=== PATIENT | female | born 1955 | race Caucasian/White ===

== ENCOUNTER 2017-09-29 06:49 | Emergency (ER) | payer MEDICARE ==
[2017-09-29] MEDS ORDERED: DICY10AM2 IM (07:01)
[2017-09-29] MEDS ORDERED: OMEP-125 PO (07:01)
--- NOTE | 2017-09-29 07:10 | ER Report ---
History and Physical Time Seen By : 07:10 Hx. of Stated Complaint: gall bladder taken out two weeks ago. traveling home to [place], stopped at rest stop in severe abd pain. had bloody diarrhea. HPI/ROS CHIEF COMPLAINT: abdominal pain, nausea, vomiting, diarrhea HISTORY OF PRESENT ILLNESS: This is a 62 year old female. She has abdominal pain that started in the last 24 hours. She also had sudden onset of diarrhea this morning, this was associated with some bright red blood as well this morning. She is traveling home to [place]. 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 She had laparoscopic cholecystectomy 2 weeks ago. Had been doing okay with that, but did lift some heavy objects that seem to have been associated with the onset of her pain. The surgical scars have been healing well. She denies any problems with urination. She does have nausea and vomiting. She has no fevers or chills. History of stomach ulcers in the past. Was on antibiotics after surgery and a few days afterward. She has irritable bowel syndrome and usually used Bentyl for this. Allergies: Coded Allergies: Sulfa (Sulfonamide Antibiotics) (Verified Allergy, Severe, 09/29/17) itching acetaminophen (Verified Allergy, Severe, 09/29/17) itching oxycodone (Verified Allergy, Severe, 09/29/17) itching prochlorperazine (Verified Allergy, Severe, 09/29/17) itching ranitidine (Verified Allergy, Severe, 09/29/17) itching Home Meds Active Scripts Dicyclomine Hcl (DICYCLOMINE HCL) 10 Mg Capsule, 10 MG PO QID Y for NAUSEA/ VOMITING, #120 CAPSULE 0 Refills Prov:EAGLE PINEDO MD 09/29/17 Metoclopramide Hcl (REGLAN) 10 Mg Tablet, 10 MG PO TID Y for NAUSEA/VOMITING, # 30 TAB 0 Refills Prov:EAGLE PINEDO MD 09/29/17 Metronidazole (METRONIDAZOLE) 500 Mg Tablet, 500 MG PO TID for 10 Days, #30 TAB 0 Refills Prov:EAGLE PINEDO MD 09/29/17 Reported Medications Omeprazole (OMEPRAZOLE) 20 Mg Capsule.dr, 1 CAP PO BID, CAP 09/29/17 Dicyclomine Hcl (BENTYL) 10 Mg/1 Ml Ampul, 10 MG IM 09/29/17 Reviewed Nurses Notes: Yes Hx Substance Use Disorder: No Hx Alcohol Use: No Constitutional Vital Sign - Last 24 Hours 09/29/17 09/29/17 09/29/17 09/29/17 06:56 06:56 07:04 07:10 Temp 98.4 Pulse 91 83 Resp 20 B/P (MAP) 140/89 (106) 140/89 135/84 (101) Pulse Ox 96 97 O2 Delivery Room Air 09/29/17 09/29/17 09/29/17 09/29/17 07:15 07:19 07:24 07:30 Pulse 75 78 B/P (MAP) 105/81 (89) 116/82 (93) Pulse Ox 98 98 09/29/17 09/29/17 09/29/17 09/29/17 07:39 07:44 07:45 07:59 Pulse 75 72 79 B/P (MAP) 127/80 (96) Pulse Ox 97 98 93 09/29/17 09/29/17 09/29/17 09/29/17 08:00 08:15 08:20 08:30 Pulse 75 B/P (MAP) 121/77 (92) 131/80 (97) 99/67 (78) Pulse Ox 96 09/29/17 09/29/17 09/29/17 09/29/17 08:35 08:45 08:50 08:55 Pulse 79 77 ??? B/P (MAP) 104/68 (80) Pulse Ox 88 92 94 09/29/17 09/29/17 09/29/17 09/29/17 09:00 09:10 09:15 09:25 Pulse 72 75 B/P (MAP) 118/71 (87) 115/72 (86) Pulse Ox 95 92 09/29/17 09/29/17 09/29/17 09/29/17 09:30 09:40 09:45 09:55 Pulse 81 B/P (MAP) 114/72 (86) 118/68 (85) Pulse Ox 97 96 09/29/17 09/29/17 09/29/17 09/29/17 10:00 10:18 10:30 10:41 B/P (MAP) 123/97 (106) 129/67 (87) 121/66 (84) 114/68 (83) Intake and Output 09/29/17 09/29/17 09/30/17 14:59 22:59 06:59 Intake Total 1100 ml Balance 1100 ml Physical Exam General Appearance: The patient is alert. No acute distress. Eyes: Pupils are equal, round. Reactive to light. No pallor, injection or icterus. ENT: Mucous membranes are moist. Normal oral mucosa. Posterior oropharynx is normal. Neck: Supple and non tender. Respiratory: Lungs are clear to auscultation. Cardiovascular: Regular rate and rhythm. No murmurs, gallops or rubs. Normal capillary refill. Gastrointestinal: Abdomen is tender throughout, worse in the suprapubic area and in the right upper quadrant. Nondistended. No masses or organomegaly. Normal active bowel sounds. No costovertebral angle tenderness with percussion. Neurological: Alert and oriented x3. Skin: Warm and dry. No rashes. Surgical scars on the abdomen are well healed. Musculoskeletal: Extremities are nontender. No tenderness in palpation of the cervical, thoracic and lumbar spine. DIFFERENTIAL DIAGNOSIS: After history and physical exam, differential diagnosis was considered for abdominal pain including but not limited to post-operative complications from her cholecystitis, colitis, infectious, gastritis/ulcer disease and urinary tract infection. Medical Decision Making Data Points Result Diagram: 09/29/17 0716 09/29/17 0716 Laboratory Hematology Test 09/29/17 07:16 09/29/17 08:06 Red Blood Count 4.63 M/uL (4.17-5.56) Mean Corpuscular Volume 89.8 fL (80.0-96.0) Mean Corpuscular Hemoglobin 31.0 pg (26.0-33.0) Mean Corpuscular Hemoglobin Concent 34.5 g/dL (32.0-36.0) Red Cell Distribution Width 12.7 % (11.5-14.5) Mean Platelet Volume 9.1 fL (7.2-11.1) Neutrophils (%) (Auto) 62.0 % (39.4-72.5) Lymphocytes (%) (Auto) 28.8 % (17.6-49.6) Monocytes (%) (Auto) 8.2 % (4.1-12.4) Eosinophils (%) (Auto) 0.5 % (0.4-6.7) Basophils (%) (Auto) 0.5 % (0.3-1.4) Nucleated RBC Relative Count (auto) 0.0 /100WBC Neutrophils # (Auto) 5.7 K/uL (2.0-7.4) Lymphocytes # (Auto) 2.6 K/uL (1.3-3.6) Monocytes # (Auto) 0.7 K/uL (0.3-1.0) Eosinophils # (Auto) 0.0 K/uL (0.0-0.5) Basophils # (Auto) 0.0 K/uL (0.0-0.1) Nucleated RBC Absolute Count (auto) 0.00 K/uL Sodium Level 140 mmol/L (137-145) Potassium Level 3.5 mmol/L (3.5-5.0) Chloride Level 102 mmol/L (98-107) Carbon Dioxide Level 22 mmol/L (22-31) Blood Urea Nitrogen 19 mg/dl (7-18) Creatinine 0.70 mg/dl (0.52-1.04) Glomerular Filtration Rate Calc > 60.0 Random Glucose 103 mg/dl (75-110) Lactate 1.2 mmol/L (0.7-2.1) Calcium Level 10.2 mg/dl (8.4-10.2) Total Bilirubin 0.7 mg/dl (0.2-1.3) Aspartate Amino Transf (AST/SGOT) 30 U/L (0-35) Alanine Aminotransferase (ALT/SGPT) 37 U/L (0-56) Alkaline Phosphatase 93 U/L (0-126) Total Protein 7.8 gm/dl (6.3-8.2) Albumin 4.5 g/dl (3.5-5.0) Amylase Level 99 U/L (0-110) Lipase 212 U/L (23-300) Thyroid Stimulating Hormone (TSH) 7.65 uIU/ml (0.46-4.68) Urine Color Straw Urine Clarity Clear Urine pH 8.0 pH (4.8-9.5) Urine Specific [place] 1.009 Urine Protein Negative mg/dL (NEGATIVE) Urine Glucose (UA) Negative mg/dL (NEGATIVE) Urine Ketones Trace mg/dL (NEGATIVE) Urine Blood Negative (NEGATIVE) Urine Nitrite Negative (NEGATIVE) Urine Bilirubin Negative (NEGATIVE) Urine Urobilinogen Negative mg/dL (0.2-1.9) Urine Leukocyte Esterase Negative (NEGATIVE) Urine RBC None /HPF (0-2/HPF) Urine WBC 1 /HPF (0-5/HPF) Urine Squamous Epithelial Cells Moderate /LPF (</=FEW) Urine Bacteria Negative /HPF (NONE-FEW) Urine Mucus None /HPF (NONE-FEW) Chemistry Test 09/29/17 07:16 09/29/17 08:06 White Blood Count 9.1 k/uL (4.5-11.0) Red Blood Count 4.63 M/uL (4.17-5.56) Hemoglobin 14.4 g/dL (12.0-16.0) Hematocrit 41.6 % (34.0-47.0) Mean Corpuscular Volume 89.8 fL (80.0-96.0) Mean Corpuscular Hemoglobin 31.0 pg (26.0-33.0) Mean Corpuscular Hemoglobin Concent 34.5 g/dL (32.0-36.0) Red Cell Distribution Width 12.7 % (11.5-14.5) Platelet Count 224 K/uL (150-450) Mean Platelet Volume 9.1 fL (7.2-11.1) Neutrophils (%) (Auto) 62.0 % (39.4-72.5) Lymphocytes (%) (Auto) 28.8 % (17.6-49.6) Monocytes (%) (Auto) 8.2 % (4.1-12.4) Eosinophils (%) (Auto) 0.5 % (0.4-6.7) Basophils (%) (Auto) 0.5 % (0.3-1.4) Nucleated RBC Relative Count (auto) 0.0 /100WBC Neutrophils # (Auto) 5.7 K/uL (2.0-7.4) Lymphocytes # (Auto) 2.6 K/uL (1.3-3.6) Monocytes # (Auto) 0.7 K/uL (0.3-1.0) Eosinophils # (Auto) 0.0 K/uL (0.0-0.5) Basophils # (Auto) 0.0 K/uL (0.0-0.1) Nucleated RBC Absolute Count (auto) 0.00 K/uL Glomerular Filtration Rate Calc > 60.0 Lactate 1.2 mmol/L (0.7-2.1) Calcium Level 10.2 mg/dl (8.4-10.2) Total Bilirubin 0.7 mg/dl (0.2-1.3) Aspartate Amino Transf (AST/SGOT) 30 U/L (0-35) Alanine Aminotransferase (ALT/SGPT) 37 U/L (0-56) Alkaline Phosphatase 93 U/L (0-126) Total Protein 7.8 gm/dl (6.3-8.2) Albumin 4.5 g/dl (3.5-5.0) Amylase Level 99 U/L (0-110) Lipase 212 U/L (23-300) Thyroid Stimulating Hormone (TSH) 7.65 uIU/ml (0.46-4.68) Urine Color Straw Urine Clarity Clear Urine pH 8.0 pH (4.8-9.5) Urine Specific [place] 1.009 Urine Protein Negative mg/dL (NEGATIVE) Urine Glucose (UA) Negative mg/dL (NEGATIVE) Urine Ketones Trace mg/dL (NEGATIVE) Urine Blood Negative (NEGATIVE) Urine Nitrite Negative (NEGATIVE) Urine Bilirubin Negative (NEGATIVE) Urine Urobilinogen Negative mg/dL (0.2-1.9) Urine Leukocyte Esterase Negative (NEGATIVE) Urine RBC None /HPF (0-2/HPF) Urine WBC 1 /HPF (0-5/HPF) Urine Squamous Epithelial Cells Moderate /LPF (</=FEW) Urine Bacteria Negative /HPF (NONE-FEW) Urine Mucus None /HPF (NONE-FEW) Urinalysis Test 09/29/17 08:06 Urine Color Straw Urine Clarity Clear Urine pH 8.0 pH (4.8-9.5) Urine Specific [place] 1.009 Urine Protein Negative mg/dL (NEGATIVE) Urine Glucose (UA) Negative mg/dL (NEGATIVE) Urine Ketones Trace mg/dL (NEGATIVE) Urine Blood Negative (NEGATIVE) Urine Nitrite Negative (NEGATIVE) Urine Bilirubin Negative (NEGATIVE) Urine Urobilinogen Negative mg/dL (0.2-1.9) Urine Leukocyte Esterase Negative (NEGATIVE) Urine RBC None /HPF (0-2/HPF) Urine WBC 1 /HPF (0-5/HPF) Urine Squamous Epithelial Cells Moderate /LPF (</=FEW) Urine Bacteria Negative /HPF (NONE-FEW) Urine Mucus None /HPF (NONE-FEW) EKG/Imaging Imaging EXAMINATION: CT Abdomen and Pelvis With Contrast 09/29/2017 7:21 AM HISTORY: abdominal pain, n/v, bloody diarrhea, recent kimberly TECHNIQUE: Spiral scan was through the abdomen and pelvis during injection of nonionic iodinated intravenous contrast. Contrast: 75 mL of IV Isovue 370. One of the following dose optimization techniques was utilized in the performance of this exam: Automated exposure control; adjustment of the mA and/ or kV according to the patient's size; or use of an iterative reconstruction technique. Specific details can be referenced in the facility's radiology CT exam operational policy. COMPARISON STUDIES: none. FINDINGS: Liver / biliary: Gallbladder surgically absent. No biliary dilatation or visible choledocholithiasis. Negative liver. Pancreas: negative Spleen: negative Adrenal glands: negative Kidneys / retroperitoneum: negative Pelvic structures: Prior hysterectomy. Neither ovary is readily visible. Bowel / peritoneum / mesenteries: Left-sided transverse and descending colon are thick-walled but completely collapsed which may count for this. There is no definite periserosal inflammatory change of colitis. Minimal diverticulosis in the sigmoid without focal inflammation. Appendix is normal. Small bowel is unremarkable. Vessels: Mild atherosclerosis. Incidental duplicated right renal vein. Musculoskeletal / Body wall: Lumbosacral spondylosis. Slight periumbilical eventration without ventral abdominal wall hernia. Lymph node assessment: negative Lower chest: negative IMPRESSION: 1. Left transverse and descending colon are thick-walled but completely collapsed which may count for this from a technical standpoint although given the history colitis would be of concern. 2. No other significant acute finding. Patient is status post cholecystectomy as well as hysterectomy. Report Dictated By: Joseph Feldman MD at 09/29/2017 8:39 AM ED Course/Re-evaluation Clinical Indication for ER IV: Hydration, IV Access ED Course Labs looked good. The TSH came back elevated and the patient will discuss this with her regular doctor at home. She had Phenergan and Protonix initially and had good relief of symptoms. No further diarrhea, so we were unable to collect stool samples. Recommended that she follow-up with her doctor in [place] for stool studies if the diarrhea continues. She had a CT scan that showed thickening of the transverse and descending that could be a colitis. Started Metronidazole 500mg IV and she will continue with PO. Cannot rule out C. Diff at this time and discussed this with the patient. Discharged home. Decision to Disposition Date: September 29, 2017 Decision to Disposition Time: 10:30 Depart Departure Latest Vital Signs Vital Signs Date Time Temp Pulse Resp B/P (MAP) Pulse Ox O2 Delivery O2 Flow Rate FiO2 09/29/17 10:41 114/68 (83) 09/29/17 09:55 96 09/29/17 09:40 81 09/29/17 06:56 98.4 20 Room Air Impression: Primary Impression: Colitis Condition: Improved Disposition: HOME OR SELF-CARE New Scripts Dicyclomine Hcl (DICYCLOMINE HCL) 10 Mg Capsule 10 MG PO QID Y for NAUSEA/VOMITING, #120 CAPSULE 0 Refills Prov: EAGLE PINEDO MD 09/29/17 Metoclopramide Hcl (REGLAN) 10 Mg Tablet 10 MG PO TID Y for NAUSEA/VOMITING, #30 TAB 0 Refills Prov: EAGLE PINEDO MD 09/29/17 Metronidazole (METRONIDAZOLE) 500 Mg Tablet 500 MG PO TID for 10 Days, #30 TAB 0 Refills Prov: EAGLE PINEDO MD 09/29/17 Patient Instructions: Infectious Colitis (ED) Additional Instructions: Take the antibiotic Metronidazole 500mg three times a day for 10 days. Take the medicine Reglan 10mg, one every 8 hours as needed for nausea or vomiting. Take Bentyl (dicyclomine) 10mg, one every 6 hours as needed for IBS symptoms. Keep taking Omeprazole 20mg once or twice a day. Please follow-up with your doctor upon return home to [place]. Your TSH was elevated, which means your thyroid hormone is too low. Your doctor can adjust medications for this. EAGLE PINEDO MD September 29, 2017 07:10
[2017-09-29] MEDS ORDERED: DICYCLOMINE HCL 10 MG CAP PO ONE (07:25)
[2017-09-29] MEDS ORDERED: NS(*) 0.9% 1000 ML BAG 1,000 ML IV ONE (07:25)
[2017-09-29] MEDS ORDERED: PROMETHAZINE 25 MG/ML 1 ML AMP IVP ONE (07:25)
[2017-09-29] MEDS ORDERED: PANTOPRAZOLE SOD 40 MG IV VIAL IVP ONE ×2 (07:25→10:30)
[2017-09-29 07:45] LABS: PLATELET COUNT, AUTOMATED 224 K/uL (150-450)
[2017-09-29] MEDS ORDERED: IOPAMIDOL 76% 75 ML INFUS BTL 75 ML ONE (07:52)
--- NOTE | 2017-09-29 08:49 | RADIOLOGY IMAGING REPORT ---
FACILITY: [facility] PATIENT NAME: Parris Lew : 1955 MR: [id number] V: [id number] EXAM DATE: ORDERING PHYSICIAN: EAGLE PINEDO TECHNOLOGIST: Location: [facility] [place] Patient: Parris Lew : 1955 Visit/Account:[id number] Date of Sevice: 09/29/2017 EXAMINATION: CT Abdomen and Pelvis With Contrast 09/29/2017 7:21 AM HISTORY: abdominal pain, n/v, bloody diarrhea, recent kimberly TECHNIQUE: Spiral scan was through the abdomen and pelvis during injection of nonionic iodinated in travenous contrast. Contrast: 75 mL of IV Isovue 370. One of the following dose optimization techniques was utilized in the performance of this exam: Autom ated exposure control; adjustment of the mA and/or kV according to the patient's size; or use of an i terative reconstruction technique. Specific details can be referenced in the facility's radiology C T exam operational policy. COMPARISON STUDIES: none. FINDINGS: Liver / biliary: Gallbladder surgically absent. No biliary dilatation or visible choledocholithiasis . Negative liver. Pancreas: negative Spleen: negative Adrenal glands: negative Kidneys / retroperitoneum: negative Pelvic structures: Prior hysterectomy. Neither ovary is readily visible. Bowel / peritoneum / mesenteries: Left-sided transverse and descending colon are thick-walled but com pletely collapsed which may count for this. There is no definite periserosal inflammatory change of colitis. Minimal diverticulosis in the sigmoid without focal inflammation. Appendix is normal. Sma ll bowel is unremarkable. Vessels: Mild atherosclerosis. Incidental duplicated right renal vein. Musculoskeletal / Body wall: Lumbosacral spondylosis. Slight periumbilical eventration without ventr al abdominal wall hernia. Lymph node assessment: negative Lower chest: negative IMPRESSION: 1. Left transverse and descending colon are thick-walled but completely collapsed which may count fo r this from a technical standpoint although given the history colitis would be of concern. 2. No other significant acute finding. Patient is status post cholecystectomy as well as hysterecto my. Report Dictated By: Joseph Feldman MD at 09/29/2017 8:39 AM Report E-Signed By: Joseph Feldman MD at 09/29/2017 8:46 AM WSN:[id number]
[2017-09-29] MEDS ORDERED: metroNIDAZOLE* 500MG/100ML BAG 100 ML IVPB ONE (09:35)
[2017-09-29] MEDS ORDERED: METOCLOPRAMIDE 10 MG/2 ML SDV IVP ONE (10:30)
[2017-09-29] MEDS ORDERED: METO-734 PO (10:33)
[2017-09-29] MEDS ORDERED: DICY10CA11 PO (10:33)
[2017-09-29] MEDS ORDERED: METR-160 PO (10:33)
[2017-09-29 10:41] VITALS: BP 114/68
== END 2017-09-29 10:43 | disposition home or self-care (01) ==
LOC: ER 07:08
DX: K52.9 Noninfective gastroenteritis and colitis, unspecified (principal)
CPT/HCPCS: 74177; 81001; 82150; 83605; 83690; 84443; 85025; 96361; 96365; 96375; 96376; 99284; A9270; C9113; J2550; J2765; J3490; J7030; Q9967; 82040; 82247; 82310; 82374; 82435; 82565; 82947; 84075; 84132; 84155; 84295; 84450; 84460; 84520